=== PATIENT | male | born 1965 | race Caucasian/White ===

== ENCOUNTER → 2017-10-19 12:29 | Outpatient (CLI) | payer MEDICARE, SELFPAY ==
--- NOTE | 2017-10-19 12:55 | DI.RAD_ITS ---
SYMPTOMS/DIAGNOSIS: NECK PAIN, M54.2, RADICULITIS CERVICAL SPINE: Odontoid, AP, lateral and bilateral oblique views. No priors. The odontoid is intact. The lateral masses are well aligned. There is straightening of the cervical lordosis, which may be due to muscle spasm or patient positioning. Endplate osteophytes are seen at C5-C6. There appears to be mild narrowing of the right neural foramen at C3-4, 4-5 and 5-6. No acute fractures or subluxations are seen. There is mild anterolisthesis of C3 on C4 of approximately 2 mm. The prevertebral soft tissues are unremarkable. The bones are normally mineralized. IMPRESSION: Mild cervical spondylosis as described above.
== END ==
PROVIDERS: PCP Family Medicine; Visit Provider Family Medicine
DX: M54.2 Cervicalgia (principal); M54.12 Radiculopathy, cervical region; M47.22 Other spondylosis with radiculopathy, cervical region
CPT/HCPCS: 72050

== ENCOUNTER 2019-09-20 10:06 | Outpatient (REF) | payer MEDICARE, SELFPAY ==
[2019-09-20 20:35] LABS: HCT 46.8 % (40.0-50.0); HGB 15.1 g/dL (13.5-17.5); MCH 29.3 pg (27.0-33.0); MCHC 32.3 % (32.0-36.0); MCV 90.9 fL (80-95); MPV 10.5 fL (8.0-11.0); Platelet Count 418 10^3/uL (130-400); RBC 5.15 10^6/uL (4.36-5.78); RDW-SD 43.1 fL; WBC 11.97 10^3/uL (4.4-10.8)
[2019-09-20 20:49] LABS: Anion Gap 10.8 mmol/L (3-11); BUN 16 mg/dL (7-18); CO2 25.2 mmol/L (21.0-32.0); CREATININE 1.12 mg/dL (0.70-1.30); Calcium 9.2 mg/dL (8.5-10.1); Chloride 102 mmol/L (98-107); Glucose 110 mg/dL (74-106); Potassium 4.7 mmol/L (3.5-5.1); Sodium 138 mmol/L (136-145)
== END 2019-09-20 10:26 ==
LOC: NCHCN 10:06
PROVIDERS: PCP Family Medicine; Visit Provider Family Medicine
DX: I10 Essential (primary) hypertension (principal); R73.09 Other abnormal glucose; Z83.2 Family history of diseases of the blood and blood-forming organs and certain disorders involving the immune mechanism
CPT/HCPCS: 80048; 85027; 83036

== ENCOUNTER 2020-02-24 11:06 | Outpatient (REF) | payer MEDICARE, SELFPAY ==
--- NOTE | 2020-02-24 14:30 | SKI_PTH ---
PATIENT: Mihai Murphy LOC: [facility] U#:[id number] AGE/SX: 54/M ROOM: RE02/24/[address]: Wilson Murcia V : 1965 BED: DIS: 02/24/2020 SPEC #: [id number] RECD: 02/25/20 12:57 STATUS: GABRIELE REQ #: [id number] AMANDA: 02/24/20 14:[address]: Wilson Murcia V DEPT: Surgical Specimen RECD BY: Mary Falcon ENTERED: 02/25/20 12:58 SP TYPE: MARCIO THOMAS DR: Bryce Ratliff Tissues: 1 - SKIN CYST/TAG/DEBRIDEMENT Procedures: SKIN LEVEL 4 Comments: [id number]
== END 2020-02-24 11:26 ==
LOC: NCHCN 11:06
PROVIDERS: PCP Family Medicine; Visit Provider Physician Assistant Medical
DX: L82.1 Other seborrheic keratosis (principal); L72.8 Other follicular cysts of the skin and subcutaneous tissue
CPT/HCPCS: 88304; 88305

== ENCOUNTER 2021-08-30 12:03 | Outpatient (REF) | payer MEDICARE, SELFPAY ==
[2021-08-30 21:40] LABS: ALT 38 U/L (16-63); AST 18 U/L (15-37); Alkaline Phosphatase 92 U/L (46-116); Anion Gap 10.6 mmol/L (3-11); BUN 12 mg/dL (7-18); Bilirubin, Total 0.2 mg/dL (0.2-1.0); CO2 24.4 mmol/L (21.0-32.0); CREATININE 1.1 mg/dL (0.70-1.30); Calcium 9.4 mg/dL (8.5-10.1); Calculated LDL 121 mg/dL (<100); Chloride 105 mmol/L (98-107); Cholesterol 179 mg/dL (<200); Glucose 86 mg/dL (74-106); HDL Cholesterol 42 mg/dL (40-60); Potassium 4.2 mmol/L (3.5-5.1); Sodium 140 mmol/L (136-145); Total Protein 7.4 g/dL (6.4-8.2); Triglyceride 83 mg/dL (<150)
== END 2021-08-30 12:04 | disposition home or self-care (01) ==
LOC: NCHCN 12:03
PROVIDERS: PCP Family Medicine; Visit Provider Family Medicine
DX: I10 Essential (primary) hypertension (principal); R73.03 Prediabetes; Z00.00 Encounter for general adult medical examination without abnormal findings; Z13.220 Encounter for screening for lipoid disorders
CPT/HCPCS: 80053; 80061; 83036

== ENCOUNTER 2022-05-06 09:00 | Emergency (ER) | payer MEDICARE, SELFPAY ==
[2022-05-06 09:03] VITALS: BP 160/81; PULSE 107; RESP 16; TEMP 36.6; O2SAT 96
--- NOTE | 2022-05-06 09:26 | W.ED.GENAD ---
Discharge Plan Disposition Patient Disposition: Home Discharge Details Clinical Impression: Gout Primary Care Provider: Bryce Ratliff ED Provider: Ramu Joyce Home Meds and New Rx's Prescriptions: New prednisone 10 mg tablet 10 mg PO DIRECTED Qty: 30 0RF Rx Instructions: see taper instructions- please take 50mg for 2 days, 40 mg for 2 days, 30 mg for 2 days,20 mg for 2 days, 10 mg for 2 days. Continued methylphenidate HCl 20 MG tablet 36 mg PO DAILY quetiapine 100 mg tablet 100 mg PO DAILY prazosin 5 mg capsule 5 mg PO DAILY venlafaxine 75 mg capsule,extended release 24hr 75 mg PO DAILY gabapentin 300 mg capsule 300 mg PO DAILY venlafaxine 150 mg capsule,extended release 24hr 150 mg PO DAILY Discontinued metoprolol succinate 100 MG tablet extended release 24 hr 100 mg PO DAILY Patient Comments: 05/06/22: not taking mirtazapine 15 MG tablet 15 mg PO HS Patient Comments: 05/06/22: not taking lisinopril 10 MG tablet 10 mg PO DAILY Patient Comments: 05/06/22: not taking Discharge Instructions Instructions: Low Purine Diet (ED), Gout (ED) Additional Instructions: Please start your steroid tomorrow and take as directed. It is very important to follow-up with your primary care provider next week for further reassessment or return to the emergency department for any new or significant worsening of your symptoms. Stay well-hydrated and you may take acetaminophen/Tylenol as needed for further discomfort. Referrals: Bryce Ratliff [Primary Care Provider] - 1 week Medical Decision Making Patient presenting to the emergency department for chief complaint of bilateral great toe pain. Patient states this is been going on for the past 10 days. Patient denies any other injury or trauma, does state that rest improves discomfort, denies any known contributing factor to her discomfort. Patient has not taken any pain medication or attempted any treatments since pain started. Patient does state concerned that this is potentially his blood sugar being elevated. Patient does have history of hypertension, renal cell carcinoma with decreased kidney function, and anxiety. I have a high suspicion that this is gout given patient's renal history. There is no obvious trauma or injury. We will check patient's blood glucose but otherwise I do not feel that labs would change disposition and patient denies all other symptoms. Given this will place patient on steroids given renal history and have patient follow-up with primary care provider for reassessment next week. After discussion of diagnosis and plan of care patient has no further needs, questions, or concerns and states clear understanding to return to the emergency department for any worsening symptoms. This documentation was generated using [employer]kidsation system, please disregard any oddities of phrase or misspellings. HPI General Mode of arrival: ambulatory. Date/Time Provider Initiated Documentation: 05/06/22 09:01. Limitations to Documentation: no limitations. Information obtained by: patient and RN notes reviewed. History of Present Illness 56 year old M presents to the emergency department with the chief complaint of Bilateral great toe pain, described as moderate, with intensity rated at 7. Quality is described as aching and sharp, and is localized to the lower extremity. Patient reports no radiation. Patient started experiencing this day(s) (10) and it has been constant. Rest improves symptom(s), Movement worsens symptoms . Patient notes no other symptoms.. Patient did receive the following treatments prior to arrival, none Related Data Home Medications Medication Instructions Recorded Confirmed methylphenidate HCl 20 mg tablet 36 mg PO DAILY 06/05/17 05/06/22 gabapentin 300 mg capsule 300 mg PO DAILY 05/06/22 05/06/22 prazosin 5 mg capsule 5 mg PO DAILY 05/06/22 05/06/22 prednisone 10 mg tablet 10 mg PO DIRECTED #30 tabs 05/06/22 quetiapine 100 mg tablet 100 mg PO DAILY 05/06/22 05/06/22 venlafaxine 150 mg 150 mg PO DAILY 05/06/22 05/06/22 capsule,extended release 24 hr venlafaxine 75 mg capsule,extended 75 mg PO DAILY 05/06/22 05/06/22 release 24 hr Previous Rx's Medication Instructions Recorded prednisone 10 mg tablet 10 mg PO DIRECTED #30 tabs 05/06/22 Allergies Allergy/AdvReac Type Severity Reaction Status Date / Time No Known Allergies Allergy Unverified 05/06/22 09:09 General Stated Complaint: Orthopedic DARLENE: 4 Review of Systems Constitutional Constitutional: Denies chills and Denies fever(s) Cardiovascular Cardiovascular: Denies leg edema Musculoskeletal Musculoskeletal: Reports as per HPI, Denies numbness and Denies tingling Integumentary/Breasts Skin/Breast: Denies erythema and Denies rash Neurologic Neurologic: Denies numbness and Denies tingling PFSH All Active Problems (Updated 05/06/22 @ 09:33 by Ramu Joyce NP) Gout (Chronic) Medical History ADD (attention deficit disorder) Anxiety and depression Attention deficit hyperactivity disorder Blastomycosis Family history of sickle cell anemia HTN (hypertension) Nicotine addiction Renal cell cancer Restless leg syndrome Rib pain on right side Tachycardia Surgical History Colonoscopy - MAC (04/18/17) right rib resection Social History Smoking/Tobacco Use Status: Current every day Smoking risk assessment performed?: Yes Drug use: Daily Substance use type: marijuana Do you feel safe at home: Yes Do you feel safe in your relationship?: Yes Exam Const General: cooperative, no acute distress and not ill appearing Orientation: alert, awake and oriented x3 Resp Effort & Inspection: normal respiratory effort, able to speak in complete sentences and no respiratory distress Auscultation: clear to auscultation bilaterally Cardio Rate: regular rate Rhythm: regular rhythm Heart Sounds: S1 normal and S2 normal Skin General skin exam: no rashes or lesions noted Neuro General: patient alert, patient awake, patient oriented x3, moves all extremities and no focal motor deficits Sensory Exam: no sensory deficits noted Extrem General: normal exam except as noted Right lower extremity: ankle Details: normal to inspection and normal ROM; no tenderness and no swelling and foot Details: normal capillary refill, tenderness Location: of the great toe Location: at the MTP joint, toes with normal ROM, no edema, vascular exam Details: dorsalis pedis pulse present, posterior tibial pulse present and normal capillary refill and motor-sensory exam Details: two point discrimination normal and light-touch normal; no ecchymosis and no crepitus Left lower extremity: ankle Details: normal to inspection and normal ROM; no tenderness and no swelling and foot Details: normal capillary refill, tenderness Location: of the great toe Location: at the MTP joint, toes with normal ROM, no edema, vascular exam Details: dorsalis pedis pulse present, posterior tibial pulse present and normal capillary refill and motor-sensory exam Details: two point discrimination normal and light-touch normal; no crepitus Course Vital Signs Vital signs: Vital Signs Temperature 36.6 C 05/06/22 09:03 Pulse 107 H 05/06/22 09:03 Respiratory Rate 16 05/06/22 09:03 Blood Pressure 160/81 H 05/06/22 09:03 Pulse Oximetry 96 05/06/22 09:03 Temperature 36.6 C 05/06/22 09:03 Temperature Source Oral 05/06/22 09:03 Pulse 107 H 05/06/22 09:03 Respiratory Rate 16 05/06/22 09:03 Respiratory Effort Normal 05/06/22 09:12 Blood Pressure 160/81 H 05/06/22 09:03 Blood Pressure Position Sitting 05/06/22 09:03 Pulse Oximetry 96 05/06/22 09:03 Oxygen Delivery Method Room Air 05/06/22 09:03 Oxygen Flow Rate 0 05/06/22 09:03 Pain Level 7 05/06/22 09:03 Comment 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
--- NOTE | 2022-05-06 09:34 | NUR.NOTE ---
Nursing Note: PT needs PCP follow up next week for gout. Yolanda, ED
[2022-05-06] MEDS: predniSONE 20 MG TAB 60 MG PO (09:46)
[2022-05-06] MEDS: Acetaminophen 325 MG TAB 650 MG PO (09:46)
== END 2022-05-06 09:53 | disposition home or self-care (01) ==
PROVIDERS: Emergency Provider Nurse Practitioner Family; PCP Family Medicine
DX: M10.9 Gout, unspecified (principal); Z86.79 Personal history of other diseases of the circulatory system; Z85.528 Personal history of other malignant neoplasm of kidney; Z79.899 Other long term (current) drug therapy
CPT/HCPCS: 36416; 82962; 99283; J7512

== ENCOUNTER 2022-07-01 21:44 | Emergency (ER) | payer MEDICARE, SELFPAY ==
[2022-07-01] VITALS (21 sets, daily range): BP systolic 111–145; BP diastolic 63–89; PULSE 64–77; RESP 10–36; TEMP 36.5; O2SAT 95–97
--- NOTE | 2022-07-01 22:35 | W.ED.GENAD ---
Discharge Plan Discharge Details Chief Complaint: [id number] Clinical Impression: Syncope and collapse, Hypomagnesemia, Hypokalemia Primary Care Provider: Bryce Ratliff ED Provider: Carlos Ashford Home Meds and New Rx's Prescriptions: Continued methylphenidate HCl 20 MG tablet 36 mg PO DAILY quetiapine 100 mg tablet 100 mg PO DAILY prazosin 5 mg capsule 5 mg PO DAILY venlafaxine 75 mg capsule,extended release 24hr 75 mg PO DAILY gabapentin 300 mg capsule 300 mg PO DAILY venlafaxine 150 mg capsule,extended release 24hr 150 mg PO DAILY prednisone 10 mg tablet 10 mg PO DIRECTED Qty: 30 0RF Rx Instructions: see taper instructions- please take 50mg for 2 days, 40 mg for 2 days, 30 mg for 2 days,20 mg for 2 days, 10 mg for 2 days. Discharge Instructions Instructions: Syncope (ED) Additional Instructions: You were seen in the emergency department for your episode of fainting. Your CAT scan showed no sign of any bleeding or any masses in your head. Your EKG and blood work showed no sign of any damage to your heart. Your blood work showed your kidneys are working well. As we discussed you may benefit from a Holter monitor to assess your heart rhythm over time and possibly echocardiogram. Please follow-up in the next week with your primary care provider. If you pass out again develop any convulsions or develop chest pain please return to the emergency department. Medical Decision Making This is an overall very well-appearing normothermic and not tachycardic 56-year-old male with syncopal episodes and question of convulsions concerning for cardiac etiology given patient's age and history of tobacco use. He also has a history of renal cancer which certainly raises the possibility of a metastatic lesion in his brain leading to an epileptogenic focus with subsequent seizure. He has not had any black nor bloody stools to suggest acute GI bleed and is neither pale appearing nor tachycardic to suggest acute blood loss anemia. He has not been vomiting to suggest increased risk for acute electrolyte abnormalities. No shortness of breath to suggest PE. He is not having any chest pain however given syncope will obtain troponin to assess for possibility of myocardial injury. He also tells me that he has not had anything to eat or drink since breakfast and as result he may have syncopized secondary to his relative fasting state in conjunction with his nocturnal gabapentin and quetiapine which she reportedly took several hours early. If his CT head does not show any obvious metastatic abnormalities and if he does not have any observed convulsions in the ED then will anticipate discharging the patient off of antiepileptic drugs pending reassessment by his primary care with possibility of MRI to increase sensitivity for any intracranial tumors. Another possibility would be to obtain Holter monitor to increase the sensitivity for arrhythmias. Finally another consideration may be an echocardiogram to look for any structural causes which could lead to syncope so I did not hear any holosystolic murmurs which could suggest aortic stenosis. Finally another consideration is blastomycosis which could cause possibility of brain abscess. Given that he is normothermic and denies any fevers at home and has no nuchal rigidity my suspicion is exceedingly low for meningitis so I do not feel he requires a lumbar puncture. I given the patient 2 cans of yusef eugenia and crackers and an attempt to prevent further episodes of syncope. In the setting of syncope I considered: High risk features: 1. Age of the patient (elderly a greatest risk) 2. Syncope during exertion 3. Family history of sudden [place] syncope rule: 1. History of CHF 2. Hematocrit < 30 3. EKG abnormalities 4. Present shortness of breath 5. Systolic blood pressure less than 90 Cardiac arrhythmia/EKG or abnormalities considered: 1. ACS: No ST changes 2. Tachy-demetris: No blocks 3. WPW: No delta wave 4. Brugada: No RSR'; R-bundle appearance 5. HCM: No LVH; needle Qs/ T-wave inversions 6. Short/ Long QT: 300 < QTc < 500; no family hx 7. Arrhythmogenic Right Ventricular Dysplasia: No epsilon wave, no inverted Ts in anterior precordium 8. No signs of ASD based on no [place] sign in inferior leads. 11:45 PM Negative troponin. Very mild hypomagnesemia for which patient will receive oral repletion. Reassuring comprehensive metabolic panel with very mild hypokalemia for which patient will receive oral repletion. Mild hyperglycemia but no anion gap to suggest DKA. No ELYSE. CBC lacks anemia thrombocytopenia and leukocytosis. Patient is not on any diuretics I suspect that his electrolytes will correct themselves but nonetheless we will add oral potassium and magnesium. We will have health ammunition storekeeper Francia arrange for PCP follow-up next week. I have written patient for continued discharge instructions pending his repeat troponin and the read on his CT head. We will sign the patient out to Dr. Torrez. Chronic conditions affecting the care of the patient: Daily tobacco & blastomycosis History obtained from an outside historian: Patient's External record review: [facility] [place] Diagnostic interpretations performed by me: [Per my independent interpretation chest x-ray shows:] N/A Per my independent interpretation EKG shows: Normal sinus rhythm with no ischemic injury pattern. No blocks signs of Brugada. Intervals within normal limits. Isolated T wave inversion in aVL. No prior for comparison. Medications: N/A Social determinants of health affecting disposition: N/A Management discussed with: Dr. Torrez Treatment/interventions considered: Hospitalization but deferred Response to therapies provided: N/A HPI General Date/Time Provider Initiated Documentation: 07/01/22 22:27. HPI Narrative: This is a 56-year-old male with a history of blastomycosis and renal cell carcinoma arriving via EMS following a syncopal episode. Patient reportedly has not had anything to eat or drink since breakfast. He was reportedly standing on some concrete steps when he lost consciousness. This episode lasted for approximately 30 seconds and his felt that he was shaking. This occurred after he took his nocturnal medications including quetiapine and gabapentin. Patient's reported that he felt warm afterwards. She tried to keep him sitting up and did not lower his head to the ground. He did not strike his head. He did not lose control of his bowels nor bladder. He is a daily tobacco user but denies routine ethanol. He denies any preceding chest pain and any preceding headaches. He was initially confused and reportedly pale appearing. He reportedly had a normal fingerstick blood glucose with prehospital providers. He has a history of restless leg syndrome. Related Data Home Medications Medication Instructions Recorded Confirmed methylphenidate HCl 20 mg tablet 36 mg PO DAILY 06/05/17 05/06/22 gabapentin 300 mg capsule 300 mg PO DAILY 05/06/22 05/06/22 prazosin 5 mg capsule 5 mg PO DAILY 05/06/22 05/06/22 prednisone 10 mg tablet 10 mg PO DIRECTED #30 tabs 05/06/22 quetiapine 100 mg tablet 100 mg PO DAILY 05/06/22 05/06/22 venlafaxine 150 mg 150 mg PO DAILY 05/06/22 05/06/22 capsule,extended release 24 hr venlafaxine 75 mg capsule,extended 75 mg PO DAILY 05/06/22 05/06/22 release 24 hr Previous Rx's Medication Instructions Recorded prednisone 10 mg tablet 10 mg PO DIRECTED #30 tabs 05/06/22 Allergies Allergy/AdvReac Type Severity Reaction Status Date / Time No Known Allergies Allergy Unverified 05/06/22 09:09 General Stated Complaint: [id number] DARLENE: 3 PFSH All Active Problems (Updated 07/01/22 @ 23:50 by Carlos Ashford MD) Syncope and collapse (Acute) Hypomagnesemia (Acute) Hypokalemia (Acute) Medical History ADD (attention deficit disorder) Anxiety and depression Attention deficit hyperactivity disorder Blastomycosis Family history of sickle cell anemia HTN (hypertension) Nicotine addiction Renal cell cancer Restless leg syndrome Rib pain on right side Tachycardia Surgical History Colonoscopy - MAC (04/18/17) right rib resection Social History Smoking/Tobacco Use Status: Current every day Smoking risk assessment performed?: Yes Drug use: Daily Substance use type: marijuana Do you feel safe at home: Yes Do you feel safe in your relationship?: Yes Exam Narrative Exam Narrative: General: Well-appearing in no acute distress speaking in complete sentences. Head: Normocephalic, atraumatic. Eye: Pupils equal, round reactive to light. Extraocular eye movements intact. No conjunctival injection. No scleral icterus. Ear, nose, mouth, throat: Grossly normal inspection. Normal voice, handling secretions normally. Neck: Trachea midline. Cardiovascular: Well-perfused distal extremities. Regular rate and rhythm. No murmurs. Clear lungs bilaterally. Respiratory: Nonlabored respiration. Gastrointestinal: Nondistended abdomen. Musculoskeletal: No edema. Moving all 4 extremities spontaneously. Skin: Normal for age and race, grossly normal temperature and turgor. No acute rash. Neurologic: Alert and appropriate, no apparent acute deficits. Psychiatric: Mood and manner are appropriate. Grooming and personal hygiene are appropriate. Course Vital Signs Vital signs: Vital Signs Temperature 36.5 C 07/01/22 21:48 Pulse 67 07/01/22 21:48 Respiratory Rate 14 07/01/22 21:48 Blood Pressure 145/70 H 07/01/22 21:48 Pulse Oximetry 95 07/01/22 21:48 Temperature 36.5 C 07/01/22 21:48 Temperature Source Temporal Artery Scan 07/01/22 21:48 Pulse 67 07/01/22 21:48 Respiratory Rate 14 07/01/22 21:48 Blood Pressure 145/70 H 07/01/22 21:48 Blood Pressure Position Sitting 07/01/22 21:48 Pulse Oximetry 95 07/01/22 21:48 Oxygen Delivery Method Room Air 07/01/22 21:48 Oxygen Flow Rate 0 07/01/22 21:48 Pain Level 0 07/01/22 21:48
--- NOTE | 2022-07-01 22:45 | DI.CT_ITS ---
Exam(s) CT HEAD WO EXAM: CT HEAD WO CLINICAL HISTORY: Loss of consciousness renal cancer?Met. TECHNIQUE: Imaging Protocol: Axial computed tomography images with coronal and sagittal reformatted images were created and reviewed COMPARISON: No exams were available for comparison FINDINGS: There are no skull fractures. No lytic nor blastic skull lesions evident. Minimal mucosal thickening noted in the maxillary sinuses, not associated with fluid levels. Other paranasal sinuses are clear . Frontal sinuses are not developed. There is no evidence of intracranial hemorrhage, mass effect, or shift of midline structures. There are no extra-axial fluid collections. The ventricles are not enlarged or shifted and there is no blo od within the ventricular system nor within the basal cisterns. IMPRESSION: No acute intracranial findings on this noninfused CT scan of the brain. Given the history here recommend follow-up contrast infused MRI of the brain. RADIATION DOSE DELIVERED: 883.57mGy.cm Total DLP DATA REPOSITORY: All CT scans at this facility are submitted to the National Radiology Data Registry (NRDR) Dose Index Registry (DIR) with the [employer] (ACR). RADIATION OPTIMIZATION: All CT scans at this facility use at least one of these dose optimization te chniques: automated exposure control; mA and/or kV adjustment per patient size (includes targeted exa ms where dose is matched to clinical indication); or iterative reconstruction.
[2022-07-01 22:50] LABS: Abs Immature Grans 0.04 10^3/uL (0.0-0.06); Absolute Basophil Count 0.04 10^3/uL (0.0-0.2); Absolute Eosinophil Count 0.34 10^3/uL (0.0-0.7); Absolute Lymphocyte Count 3.48 10^3/uL (1.2-3.4); Absolute Monocyte Count 0.92 10^3/uL (0.1-0.8); Absolute Neutrophil Count 5.79 10^3/uL (1.2-6.7); Basophils % 0.4; Eosinophils % 3.2; HCT 46.4 % (40.0-50.0); HGB 15.8 g/dL (13.5-17.5); Immature Grans % 0.4; Lymphocytes % 32.8; MCH 29.5 pg (27.0-33.0); MCHC 34.1 % (32.0-36.0); MCV 87 fL (80-95); MPV 9.8 fL (8.0-11.0); Monocytes % 8.7; Neutrophils % 54.5; Platelet Count 296 10^3/uL (130-400); RBC 5.36 10^6/uL (4.36-5.78); RDW 13.2 % (11.8-14.1); RDW-SD 41.7 fL; WBC 10.61 10^3/uL (4.4-10.8)
--- NOTE | 2022-07-01 23:00 | RT.EKG_ITS ---
APPROVED REPORT Exam: Resting ECG Reason for Exam: Syncope Patient Location: E HR:65 bpm ECG Measurements Heart Rate 65 AXIS NE 165 P 54 QRSd 92 QRS 83 QT 426 T 73 QTc 442 Conclusion Sinus rhythm...normal P axis, V-rate 60- 99 Narrow complex normal sinus rhythm at a rate of 65. Normal axis. Intervals within normal limits. T wave inversion in aVL. No acute injury pattern. No prior for comparison.
[2022-07-01 23:04] LABS: ALT 38 U/L (16-63); AST 19 U/L (15-37); Albumin 4.2 g/dL (3.4-5.0); Alkaline Phosphatase 98 U/L (46-116); Anion Gap 10.2 mmol/L (3-11); BUN 11 mg/dL (7-18); Bilirubin, Total 0.5 mg/dL (0.2-1.0); CO2 25.8 mmol/L (21.0-32.0); CREATININE 1.1 mg/dL (0.70-1.30); Chloride 103 mmol/L (98-107); Estimated GFR 79.28 (mL/min/1.73m2); Glucose 140 mg/dL (74-106); Magnesium 1.7 mg/dL (1.8-2.4); Potassium 3.3 mmol/L (3.5-5.1); Sodium 139 mmol/L (136-145); Total Protein 7.7 g/dL (6.4-8.2); Troponin I < 50 ng/L (<or=60)
[2022-07-02] VITALS (10 sets, daily range): BP systolic 143; BP diastolic 81; PULSE 68–78; RESP 8–21; O2SAT 94–97
--- NOTE | 2022-07-02 00:04 | NUR.NOTE ---
Pt referral for Primary per Dr. Ashford within 1 week for Syncope f/u :
--- NOTE | 2022-07-02 00:18 | DI.VRAD_ITS ---
PROCEDURE INFORMATION: Exam: CT Head Without Contrast Exam date and time: 07/01/2022 11:23 PM Age: 56 years old Clinical indication: Other: Loss of consciousness renal cancer? Met TECHNIQUE: Imaging protocol: Computed tomography of the head without contrast. Radiation optimization: All CT scans at this facility use at least one of these dose optimization techniques: automated exposure control; mA and/or kV adjustment per patient size (includes targeted exams where dose is matched to clinical indication); or iterative reconstruction. COMPARISON: CR XR cervical spine comp 4-5V 10/19/2017 12:49 PM FINDINGS: Brain: There is no evidence of intracranial hemorrhage. No mass effect or midline shift. There is no brain edema. Unremarkable white matter. Cerebral ventricles: The ventricles and sulci are appropriate for the patient's age. Paranasal sinuses: There are no air-fluid levels. Mastoid air cells: The visualized mastoid air cells are well aerated. Bones/joints: No acute fracture. Soft tissues: Unremarkable. IMPRESSION: 1. No acute findings. 2. No intracranial mass is identified. Please note that small metastatic lesions may be missed on the noncont CT scan of the brain. CT with intravenous contrast has better sensitivity. MRI with contrast is the preferred modality for detection metastatic disease to the brain. Dictated and Authenticated by: Luis Madrigal MD. Ordering:PAUL Gonzalez MD
[2022-07-02] MEDS: Potassium Bicarbonate/Cit AC 25 MEQ TABLET.EFF 50 MEQ PO (00:21)
[2022-07-02] MEDS: Magnesium Oxide 400 MG TAB PO (00:21)
--- NOTE | 2022-07-02 01:25 | ED.PROG_ITS ---
Date of service: 07/02/22 Time of Service: 01:26 Medical Decision Making Patient was signed out to me pending CT scan. CT scan ordered for acute process. Discussed the plan with the patient and family, and at this time they have no other concerns. They are ready to go on her asking for discharge. Symptoms at this time showed no evidence of neurologic defect or deficit. Patient stable for discharge. Recommend continued hydration at home. I have extensively reviewed the treatment plan and discharge instructions with the patient and their family. I have addressed all patient concerns at this time. The patient and family was made aware of what symptoms to monitor for that would warrant a return to the emergency department. Discussed the plan with the patient and family, they demonstrate verbal understanding and agreement with our assessment and plan at this time. The documentation in this chart was dictated using [employer] dictation software. Please excuse any dictation errors. FINDINGS: Brain: There is no evidence of intracranial hemorrhage. No mass effect or midline shift. There is no brain edema. Unremarkable white matter. Cerebral ventricles: The ventricles and sulci are appropriate for the patient's age. Paranasal sinuses: There are no air-fluid levels. Mastoid air cells: The visualized mastoid air cells are well aerated. Bones/joints: No acute fracture. Soft tissues: Unremarkable. IMPRESSION: 1. No acute findings. 2. No intracranial mass is identified. Please note that small metastatic lesions may be missed on the noncont CT scan of the brain. CT with intravenous contrast has better sensitivity. MRI with contrast is the preferred modality for detection metastatic disease to the brain. Thank you for allowing us to participate in the care of your patient. Dictated and Authenticated by: Luis Madrigal MD 07/02/2022 12:18 AM Eastern Time ([place] & [place] Sign Out Sign Out Data: Sign Out Comment: Please follow-up repeat troponin and read on CT head. Patient has been written for contingent discharge instructions and updated on this plan of care. Last updated by Carlos Ashford MD at 07/02/22 00:03 Discharge Plan Discharge Details Chief Complaint: [id number] Clinical Impression: Syncope and collapse, Hypomagnesemia, Hypokalemia Primary Care Provider: Bryce Ratliff ED Provider: Edilson Torrez Home Meds and New Rx's Prescriptions: Continued methylphenidate HCl 20 MG tablet 36 mg PO DAILY quetiapine 100 mg tablet 100 mg PO DAILY prazosin 5 mg capsule 5 mg PO DAILY venlafaxine 75 mg capsule,extended release 24hr 75 mg PO DAILY gabapentin 300 mg capsule 300 mg PO DAILY venlafaxine 150 mg capsule,extended release 24hr 150 mg PO DAILY prednisone 10 mg tablet 10 mg PO DIRECTED Qty: 30 0RF Rx Instructions: see taper instructions- please take 50mg for 2 days, 40 mg for 2 days, 30 mg for 2 days,20 mg for 2 days, 10 mg for 2 days. Discharge Instructions Instructions: Syncope (ED) Additional Instructions: You were seen in the emergency department for your episode of fainting. Your CAT scan showed no sign of any bleeding or any masses in your head. Your EKG and blood work showed no sign of any damage to your heart. Your blood work showed your kidneys are working well. As we discussed you may benefit from a Holter monitor to assess your heart rhythm over time and possibly echocardiogram. Please follow-up in the next week with your primary care provider. If you pass out again develop any convulsions or develop chest pain please return to the emergency department.
[2022-07-02 01:38] LABS: Troponin I < 50 ng/L (<or=60)
== END 2022-07-02 01:32 | disposition home or self-care (01) ==
PROVIDERS: Emergency Medicine; Emergency Provider Student in an Organized Health Care Education/Training Program; PCP Family Medicine
DX: R55 Syncope and collapse (principal); E87.6 Hypokalemia; E83.42 Hypomagnesemia
CPT/HCPCS: 80053; 93005; 99284; 70450; 83735; 84484; 85025; 93010

== ENCOUNTER 2022-07-26 21:40 | Emergency (ER) | payer MEDICARE, SELFPAY ==
[2022-07-26 21:45] VITALS: BP 144/84; PULSE 104; RESP 22; TEMP 36.9; O2SAT 98
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
== END 2022-07-26 22:21 | disposition home or self-care (01) ==
PROVIDERS: Emergency Provider Emergency Medicine; PCP Family Medicine
DX: I10 Essential (primary) hypertension; S50.312A Abrasion of left elbow, initial encounter; S00.412A Abrasion of left ear, initial encounter; Y00.XXXA Assault by blunt object, initial encounter; S09.90XA Unspecified injury of head, initial encounter
CPT/HCPCS: 99282; 99283

== ENCOUNTER 2022-09-09 13:37 | Outpatient (CLI) | payer MEDICARE, SELFPAY ==
--- NOTE | 2022-09-09 13:45 | RT.EKG_ITS ---
APPROVED REPORT Exam: Resting ECG Reason for Exam: NPW baseline needed Patient Location: O HR:72 bpm ECG Measurements Heart Rate 72 AXIS IL 148 P 55 QRSd 92 QRS 76 QT 389 T 54 QTc 426 Conclusion Sinus rhythm...normal P axis, V-rate 50- 99 Normal Electrocardiogram
== END 2022-09-09 13:38 | disposition home or self-care (01) ==
LOC: DI.CARD 14:00
PROVIDERS: PCP Family Medicine; Referring Provider Family Medicine; Visit Provider Internal Medicine Cardiovascular Disease
DX: F43.10 Post-traumatic stress disorder, unspecified (principal)
CPT/HCPCS: 93010

== ENCOUNTER 2022-09-09 14:34 | Emergency (ER) | payer MEDICARE, SELFPAY ==
--- NOTE | 2022-09-09 14:30 | RT.EKG_ITS ---
APPROVED REPORT Exam: Resting ECG Reason for Exam: per cardiology Patient Location: E HR:69 bpm ECG Measurements Heart Rate 69 AXIS MI 161 P 47 QRSd 91 QRS 69 QT 397 T 44 QTc 427 Conclusion Sinus rhythm...normal P axis, V-rate 60- 99 Narrow complex normal sinus rhythm at a rate of 69. Normal axis. Intervals within normal limits. T wave flattening in aVL appears slightly improved compared to prior. Prior dated earlier today. No ST segment elevation. No acute injury pattern.
[2022-09-09 14:39] VITALS: BP 146/85; PULSE 66; RESP 18; TEMP 36.9; O2SAT 99
--- NOTE | 2022-09-09 14:39 | ED.GENADUL_ITS ---
Discharge Plan Discharge Details Chief Complaint: SOB Primary Care Provider: Ruthie Hernandez ED Provider: Carlos Ashford Home Meds and New Rx's Prescriptions: No Action trazodone 50 mg tablet 50 mg PO QHS Rx Instructions: Take 1/2 tablet at bedtime for first 7 days. Then 1 tablet every night thereafter. methylphenidate HCl 20 MG tablet 36 mg PO DAILY gabapentin 400 mg capsule 400 mg PO TID quetiapine [Seroquel] 100 mg tablet 50 mg PO QHS quetiapine 100 mg tablet 100 mg PO DAILY prazosin 5 mg capsule 5 mg PO DAILY venlafaxine 75 mg capsule,extended release 24hr 75 mg PO DAILY venlafaxine 150 mg capsule,extended release 24hr 150 mg PO DAILY HPI General Date/Time Provider Initiated Documentation: 09/09/22 14:39 . Related Data Home Medications Medication Instructions Recorded Confirmed methylphenidate HCl 20 mg tablet 36 mg PO DAILY 06/05/17 09/09/22 prazosin 5 mg capsule 5 mg PO DAILY 05/06/22 09/09/22 quetiapine 100 mg tablet 100 mg PO DAILY 05/06/22 07/26/22 venlafaxine 150 mg 150 mg PO DAILY 05/06/22 09/09/22 capsule,extended release 24 hr venlafaxine 75 mg capsule,extended 75 mg PO DAILY 05/06/22 09/09/22 release 24 hr gabapentin 400 mg capsule 400 mg PO TID 09/07/22 09/09/22 quetiapine 100 mg tablet (Seroquel) 50 mg PO QHS 09/09/22 09/09/22 trazodone 50 mg tablet 50 mg PO QHS 09/09/22 09/09/22 Allergies Allergy/AdvReac Type Severity Reaction Status Date / Time No Known Allergies Allergy Verified 09/09/22 14:03 General DARLENE: 4 PFSH All Active Problems (Updated 09/07/22 @ 15:44 by Caesar Hair RN) PTSD (post-traumatic stress disorder) (Acute) Prediabetes (Acute) Tobacco use disorder (Acute) Tremor (Acute) Motor tic disorder (Acute) Syncope and collapse (Acute) Medical History (Updated 09/07/22 @ 15:44 by Caesar Hair RN) ADD (attention deficit disorder) Anxiety and depression Attention deficit hyperactivity disorder Blastomycosis Family history of sickle cell anemia HTN (hypertension) Nicotine addiction Renal carcinoma Renal cell cancer Restless leg syndrome Rib pain on right side Tachycardia Tubular adenoma of colon (04/18/17) Surgical History Colonoscopy - MAC (04/18/17) right rib resection Social History Smoking/Tobacco Use Status: Current every day Smoking risk assessment performed?: Yes Alcohol Intake: never Drug use: Daily Substance use type: marijuana Do you feel safe at home: Yes Do you feel safe in your relationship?: Yes
--- NOTE | 2022-09-09 15:00 | DI.RAD_ITS ---
Exam(s) XR CHEST 2V PA LATERAL EXAM: XR CHEST 2V PA LATERAL CLINICAL HISTORY: cough, apices crackles, r/o pneumonia TECHNIQUE: 2D digital imaging was performed. COMPARISON: CT ABD PELVIS WITH CONTRAST from 10/09/2015 CR CHEST 2 VIEWS PA,LAT from 02/16/2016 FINDINGS: HEART: Normal size. Aorta: Not dilated. PULMONARY VASCULATURE: Normal. LUNGS: Linear density seen above the left diaphragm, similar to prior exam. The lungs are otherwise clear. No evidence of infiltrate. PLEURAL SPACE: No pleural effusion or pneumothorax. BONE:Unremarkable for age. IMPRESSION: No acute abnormality. DATA REPOSITORY: RADIATION DOSE DELIVERED:
--- NOTE | 2022-09-09 15:08 | W.EDPROG ---
Date of service: 09/09/22 Time of Service: 15:08 Medical Decision Making I had originally signed up to evaluate this patient. I called cardiology as patient was reportedly at cardiac rehab earlier today. Patient reportedly had had a cough and subjective fever. Patient referred himself to the ED. Dr. Abdalla from cardiology reported that the patient had had clear lungs. I did not see the patient nor evaluate him in the emergency department. Discharge Plan Discharge Details Chief Complaint: SOB Primary Care Provider: Ruthie Hernandez ED Provider: Provider,Temporary Home Meds and New Rx's Prescriptions: No Action trazodone 50 mg tablet 50 mg PO QHS Rx Instructions: Take 1/2 tablet at bedtime for first 7 days. Then 1 tablet every night thereafter. methylphenidate HCl 20 MG tablet 36 mg PO DAILY gabapentin 400 mg capsule 400 mg PO TID quetiapine [Seroquel] 100 mg tablet 50 mg PO QHS quetiapine 100 mg tablet 100 mg PO DAILY prazosin 5 mg capsule 5 mg PO DAILY venlafaxine 75 mg capsule,extended release 24hr 75 mg PO DAILY venlafaxine 150 mg capsule,extended release 24hr 150 mg PO DAILY
--- NOTE | 2022-09-09 15:14 | W.ED.GENAD ---
Discharge Plan Disposition Patient Disposition: Home Condition: Good Discharge Details Clinical Impression: Bronchitis Primary Care Provider: Ruthie Hernandez ED Provider: Edilson Torrez Home Meds and New Rx's Prescriptions: New doxycycline hyclate 100 mg tablet 100 mg PO BID Qty: 20 0RF No Action trazodone 50 mg tablet 50 mg PO QHS Rx Instructions: Take 1/2 tablet at bedtime for first 7 days. Then 1 tablet every night thereafter. methylphenidate HCl 20 MG tablet 36 mg PO DAILY gabapentin 400 mg capsule 400 mg PO TID quetiapine [Seroquel] 100 mg tablet 50 mg PO QHS quetiapine 100 mg tablet 100 mg PO DAILY prazosin 5 mg capsule 5 mg PO DAILY venlafaxine 75 mg capsule,extended release 24hr 75 mg PO DAILY venlafaxine 150 mg capsule,extended release 24hr 150 mg PO DAILY Discharge Instructions Instructions: Acute Bronchitis (ED) Additional Instructions: At this time your chest x-ray shows no evidence of pneumonia. I suspect you have early mild bronchitis. Please take the inhaler, 2 puffs every 6-8 hours to help maintain good aeration while you are coughing. You can take emst-iio-xeaksxs loratadine to help diminish any congestion or sputum production. If you still have persistent or worsening symptoms after 48 hours, please take the doxycycline as directed. If you notice any worsening of your symptoms, or any new symptoms such as vomiting, diarrhea, fever, chills, shortness of breath, chest pain, numbness, weakness, or fainting , please return immediately to the emergency department for reevaluation. Please follow up with your primary care provider as soon as possible for reassessment and reevaluation. As always, it was a pleasure participating in your medical care today. Referrals: Ruthie Hernandez [Primary Care Provider] - Medical Decision Making 56-year-old male with a past medical history of renal cell carcinoma,, PTSD, blastomycosis, hypertension, presents today for evaluation of cough. Patient states that about 1 week ago he developed a cough, then had 3 to 4 days of subsequent fevers with a Tmax of 10 1-1 02. The fevers have since resolved and he has been fever free for the last 3 to 4 days, however the cough is persisted. He admits to productivity with his cough with green sputum. He denies any recent long trips, surgeries or procedures. He denies any chest pain, chest tightness, chest heaviness, or pain with breathing. He denies any pleuritic chest pain. He denies any headache. He denies any other sick contacts. He has had the COVID booster most recently about 4 months ago. He has not had coronavirus at all that he is contracted that he is aware of. No other complaints at this time. No other modifying factors. Physical exam demonstrates well-appearing male, vital signs are stable no respiratory distress. Lung sounds are clear except for questionable minimal crackle at the apices bilaterally. Differential is highest for bronchitis versus pneumonia. Pneumothorax unlikely. Symptoms appear inconsistent with PE. EKG is unremarkable. Symptoms inconsistent with ACS. We will get an x-ray, test for flu and COVID, monitor closely and reassess. 4:31 PM Chest x-ray negative for acute process. No evidence of pneumonia. Will give inhaler for home use to maintain good aeration. No indication to start antibiotics right now. We will give a prescription for doxycycline for home as the patient has persistent or worsening cough. Discussed red flags for which to return. I have extensively reviewed the treatment plan and discharge instructions with the patient. I have addressed all patient concerns at this time. The patient was made aware of what symptoms to monitor for that would warrant a return to the emergency department. Discussed the plan with the patient, they demonstrate verbal understanding and agreement with our assessment and plan at this time. The documentation in this chart was dictated using [employer] dictation software. Please excuse any dictation errors. FINDINGS: HEART: Normal size. Aorta: Not dilated. PULMONARY VASCULATURE: Normal. LUNGS: Linear density seen above the left diaphragm, similar to prior exam. The lungs are otherwise clear. No evidence of infiltrate. PLEURAL SPACE: No pleural effusion or pneumothorax. BONE:Unremarkable for age. IMPRESSION: No acute abnormality. HPI General Date/Time Provider Initiated Documentation: 09/09/22 14:39. HPI Narrative: 56-year-old male with a past medical history of renal cell carcinoma,, PTSD, blastomycosis, hypertension, presents today for evaluation of cough. Patient states that about 1 week ago he developed a cough, then had 3 to 4 days of subsequent fevers with a Tmax of 10 1-1 02. The fevers have since resolved and he has been fever free for the last 3 to 4 days, however the cough is persisted. He admits to productivity with his cough with green sputum. He denies any recent long trips, surgeries or procedures. He denies any chest pain, chest tightness, chest heaviness, or pain with breathing. He denies any pleuritic chest pain. He denies any headache. He denies any other sick contacts. He has had the COVID booster most recently about 4 months ago. He has not had coronavirus at all that he is contracted that he is aware of. No other complaints at this time. No other modifying factors. Related Data Home Medications Medication Instructions Recorded Confirmed methylphenidate HCl 20 mg tablet 36 mg PO DAILY 06/05/17 09/09/22 prazosin 5 mg capsule 5 mg PO DAILY 05/06/22 09/09/22 quetiapine 100 mg tablet 100 mg PO DAILY 05/06/22 07/26/22 venlafaxine 150 mg 150 mg PO DAILY 05/06/22 09/09/22 capsule,extended release 24 hr venlafaxine 75 mg capsule,extended 75 mg PO DAILY 05/06/22 09/09/22 release 24 hr gabapentin 400 mg capsule 400 mg PO TID 09/07/22 09/09/22 doxycycline hyclate 100 mg tablet 100 mg PO BID #20 tabs 09/09/22 quetiapine 100 mg tablet (Seroquel) 50 mg PO QHS 09/09/22 09/09/22 trazodone 50 mg tablet 50 mg PO QHS 09/09/22 09/09/22 Previous Rx's Medication Instructions Recorded doxycycline hyclate 100 mg tablet 100 mg PO BID #20 tabs 09/09/22 Allergies Allergy/AdvReac Type Severity Reaction Status Date / Time No Known Allergies Allergy Verified 09/09/22 14:03 General Stated Complaint: SOB DARLENE: 4 Review of Systems All systems reviewed & are unremarkable except as noted in HPI and below PFSH All Active Problems (Updated 09/09/22 @ 16:27 by Edilson Torrez DO) Bronchitis (Acute) PTSD (post-traumatic stress disorder) (Acute) Prediabetes (Acute) Tobacco use disorder (Acute) Tremor (Acute) Motor tic disorder (Acute) Syncope and collapse (Acute) Medical History ADD (attention deficit disorder) Anxiety and depression Attention deficit hyperactivity disorder Blastomycosis Family history of sickle cell anemia HTN (hypertension) Nicotine addiction Renal carcinoma Renal cell cancer Restless leg syndrome Rib pain on right side Tachycardia Tubular adenoma of colon (04/18/17) Surgical History Colonoscopy - MAC (04/18/17) right rib resection Social History Smoking/Tobacco Use Status: Current every day Smoking risk assessment performed?: Yes Alcohol Intake: never Drug use: Daily Substance use type: marijuana Do you feel safe at home: Yes Do you feel safe in your relationship?: Yes Exam Narrative Exam Narrative: 1.Const: Well-nourished, Well-developed, appearing stated age 2.Eyes: PERRL, no conjunctival injection, and symmetrical lids. 3.ENT: Atraumatic external nose and ears. Moist MM. Neck: Symmetric, trachea midline, No thyromegaly. 4.CVS: +S1/S2, No murmurs or gallops. Peripheral pulses 2+ and equal in all extremities. Brisk capillary refill in all extremities. 5.RESP: Unlabored respiratory effort. Clear to auscultation except for questionable minimal crackle at the apices bilaterally. No wheezes or rhonchi 6.GI: Soft, Nontender/Nondistended, No hepatosplenomegaly. No guarding or rebound. 7.MSK: Normocephalic/Atraumatic, Extremities w/o deformity or ttp No cyanosis or clubbing, Normal movement of all extremities 8.Skin: Warm, Dry. No rashes or lesions. 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 Sensation grossly intact, no focal neurologic deficits. 10.Psych: (AAO) x3. Appropriate mood and affect Course Vital Signs Vital signs: Vital Signs Temperature 36.9 C 09/09/22 14:39 Pulse 66 09/09/22 14:39 Respiratory Rate 18 09/09/22 14:39 Blood Pressure 146/85 H 09/09/22 14:39 Pulse Oximetry 99 09/09/22 14:39 Temperature 36.9 C 09/09/22 14:39 Pulse 66 09/09/22 14:39 Respiratory Rate 18 09/09/22 14:39 Respiratory Effort Short of Breath 09/09/22 15:02 Respiratory Depth Normal 09/09/22 15:02 Respiratory Pattern Normal 09/09/22 15:02 Blood Pressure 146/85 H 09/09/22 14:39 Blood Pressure Position Sitting 09/09/22 14:39 Pulse Oximetry 99 09/09/22 14:39 Oxygen Delivery Method Room Air 09/09/22 14:39 Oxygen Flow Rate 0 09/09/22 14:39
[2022-09-09] MEDS: Albuterol HFA 8 GM 60 PUFF INH IH (16:32)
[2022-09-09 16:33] VITALS: BP 145/81; PULSE 71; RESP 16; O2SAT 98
[2022-09-09] MEDS: Inhaler, Assist Device 1 EACH MC (16:33)
[2022-09-09 16:35] VITALS: BP 145/81; PULSE 73; O2SAT 99
== END 2022-09-09 16:39 | disposition home or self-care (01) ==
PROVIDERS: Emergency Provider Student in an Organized Health Care Education/Training Program; PCP Family Medicine
DX: R06.02 Shortness of breath (principal); Z20.822 Contact with and (suspected) exposure to COVID-19; J40 Bronchitis, not specified as acute or chronic
CPT/HCPCS: 93005; 94640; 99202; 99284; 71046; 93010

== ENCOUNTER 2023-09-15 00:26 | Outpatient (CLI) | payer OTHER, SELFPAY ==
--- NOTE | 2023-09-15 | DI.CTLCSR_ITS ---
Exam(s) CT CHEST LUNG CANCER SCREEN EXAM: CT CHEST LUNG CANCER SCREEN CLINICAL HISTORY: Nicotine dependence, F17.210. TECHNIQUE: Imaging Protocol: Low Dose Technique CONTRAST MATERIAL: None COMPARISON: CT ABD PELVIS WITH CONTRAST from 10/02/2015 CT ABD PELVIS WITH CONTRAST from 10/09/2015 CR XR CHEST 2V PA LATERAL from 09/09/2022 FINDINGS: CHEST: LUNGS: There are no ominous pulmonary nodules. Scarring in the lung bases again noted. No pleural ef fusions. MEDIASTINUM: There is no obvious hilar nor mediastinal adenopathy. CARDIAC: Heart size is normal. There is no pericardial effusion.Caliber of the thoracic aorta is wit hin normal limits. OTHER: Lowermost images reveal no adrenal masses but there are peripherally calcified nodules in the partially visualized right kidney which are difficult to evaluate on this type study. Recommend ultr asound. Spleen size normal. OSSEOUS: No significant osseous lesions.. IMPRESSION: 1. No significant pulmonary nodules. No new infiltrates nor pleural effusions nor new obvious intra thoracic adenopathy 2. Findings posteriorly in the partially visualized right kidney which are probably sequelae of the p rior findings described on CT scan of the abdomen performed October 2015. 3. Lung RADS Cat 1 - Negative: No nodules and definitely benign nodules Lung-RADS 1.0 CATEGORIES: Category 0 - Prior chest CT exam(s) being located for comparison. Category 1 - Annual screening in 12 months. No nodules or definitely benign nodules. Category 2 - Annual screening in 12 months. Benign appearance. Nodules with low likelihood of becomin g active cancer. Category 3 - 6-month follow-up. Probably benign. Short-term follow-up suggested. Nodules with low lik elihood of becoming active cancer. Category 4A - 3-month follow-up and CT/PET if >8 mm in size. Suspicious finding. Findings which requi re additional testing. Category 4B - Findings which require additional testing and tissue sampling. Category 4X - Category 3 or 4 nodules with additional features or imaging findings that increases the suspicion of malignancy. Modifier S- Potentially clinically significant findings (non lung cancer) RADIATION DOSE DELIVERED: Total DLP DATA REPOSITORY: All CT scans at this facility are submitted to the National Radiology Data Registry (NRDR) Dose Index Registry (DIR) with the [employer] (A[employer]). RADIATION OPTIMIZATION: All CT scans at this facility use at least one of these dose optimization te chniques: automated exposure control; mA and/or kV adjustment per patient size (includes targeted exa ms where dose is matched to clinical indication); or iterative reconstruction.
== END 2023-09-15 00:46 ==
PROVIDERS: PCP Family Medicine; Visit Provider Family Medicine
DX: F17.210 Nicotine dependence, cigarettes, uncomplicated (principal); Z12.2 Encounter for screening for malignant neoplasm of respiratory organs
CPT/HCPCS: 71271

== ENCOUNTER 2024-02-23 14:16 | Outpatient (REF) | payer MEDICARE, SELFPAY ==
[2024-02-27 08:39] LABS: Methylphenidate 345 ng/mL (Cutoff: 10); Ritalinic Acid 6257 ng/mL (Cutoff: 50)
== END 2024-02-23 14:17 | disposition home or self-care (01) ==
LOC: LBN 14:16
PROVIDERS: PCP Family Medicine; Visit Provider Nurse Practitioner Family
DX: Z51.81 Encounter for therapeutic drug level monitoring (principal); F33.41 Major depressive disorder, recurrent, in partial remission; F90.0 Attention-deficit hyperactivity disorder, predominantly inattentive type
CPT/HCPCS: 80360

== ENCOUNTER 2024-08-19 15:49 | Outpatient (REF) | payer MEDICARE, SELFPAY ==
[2024-08-19 16:24] LABS: Hemoglobin A1C 5.9 % (<5.7)
[2024-08-19 16:31] LABS: Anion Gap 6.4 mmol/L (3-11); BUN 16 mg/dL (7-18); CO2 30.6 mmol/L (21.0-32.0); Calcium 9.9 mg/dL (8.5-10.1); Calculated LDL 89 mg/dL (<100); Chloride 103 mmol/L (98-107); Cholesterol 168 mg/dL (<200); Estimated GFR 70.53 (mL/min/1.73m2); Glucose 131 mg/dL (74-106); HDL Cholesterol 54 mg/dL (>or=40); Potassium 4.4 mmol/L (3.5-5.1); Sodium 140 mmol/L (136-145); Triglyceride 126 mg/dL (<150)
[2024-08-19 18:32] LABS: Uric Acid 6.7 mg/dL (3.5-7.2)
== END 2024-08-19 15:50 | disposition home or self-care (01) ==
LOC: NCHCN 15:49
PROVIDERS: PCP Family Medicine; Visit Provider Family Medicine
DX: E78.5 Hyperlipidemia, unspecified (principal); R73.9 Hyperglycemia, unspecified; M10.9 Gout, unspecified; Z90.5 Acquired absence of kidney
CPT/HCPCS: 80048; 80061; 83036; 84550

== ENCOUNTER 2024-08-23 17:56 | Outpatient (REF) | payer MEDICARE, SELFPAY ==
[2024-08-23 18:52] LABS: Cannabinoids THC Positive (Negative); METHADONE URINE SCREEN Negative (Negative)
== END 2024-08-23 17:57 | disposition home or self-care (01) ==
LOC: LBN 17:56
PROVIDERS: PCP Family Medicine; Visit Provider Registered Nurse
DX: Z51.81 Encounter for therapeutic drug level monitoring (principal)
CPT/HCPCS: 80307

== ENCOUNTER → 2024-12-13 03:29 | Outpatient (CLI) | payer MEDICARE, SELFPAY ==
--- NOTE | 2024-12-13 | DI.CTLCSR_ITS ---
Exam(s) CT CHEST LUNG CANCER SCREEN EXAM: CT CHEST LUNG CANCER SCREEN CLINICAL HISTORY: FORMER SMOKER, Z87.891,SCREENING FOR LUNG CA TECHNIQUE: Imaging Protocol: Axial computed tomography images with coronal and sagittal reformatted images were created and reviewed. Lung Computer Aided Detection (CAD) was utilized. COMPARISON: CT CT CHEST LUNG CANCER SCREEN from 09/15/2023 FINDINGS: Tracheobronchial tree: Patent where visualized. No bronchiectasis. Pulmonary parenchyma: No consolidation or dominant measurable mass. There is scarring again seen in the left lower lobe. Lung Nodules: There are no suspicious pulmonary nodules. Mediastinum and Carmen: No dominant adenopathy or fluid collection. The esophagus is unremarkable. Thyroid gland: Unremarkable. Lymph nodes: Unremarkable. Pleura: No effusion or pneumothorax. Heart: The heart is not dilated. No coronary artery calcifications are seen. No pericardial effusion. Aorta: Thoracic aorta non-dilated.Mild atherosclerotic calcification is present. Upper abdomen: Unremarkable. Soft Tissues: Unremarkable. Bones: Within normal limits. IMPRESSION: There are no suspicious pulmonary nodules. Lung RADS Cat 1 - Negative: No nodules and definitely benign nodules Lung-RADS 1.0 CATEGORIES: Category 0 - Prior chest CT exam(s) being located for comparison. Category 1 - Annual screening in 12 months. No nodules or definitely benign nodules. Category 2 - Annual screening in 12 months. Benign appearance. Nodules with low likelihood of becoming active cancer. Category 3 - 6-month follow-up. Probably benign. Short-term follow-up suggested. Nodules with low likelihood of becoming active cancer. Category 4A - 3-month follow-up and CT/PET if >8 mm in size. Suspicious finding. Findings which require additional testing. Category 4B - Findings which require additional testing and tissue sampling. Suspicious finding. Category 4X - Category 3 or 4 nodules with additional features or imaging findings that increases the suspicion of malignancy. Modifier S- Potentially clinically significant finding. (Non lung cancer) RADIATION DOSE DELIVERED: Total DLP Total DLP DATA REPOSITORY: All CT scans at this facility are submitted to the National Radiology Data Registry (NRDR) Dose Index Registry (DIR) with the [employer] (ACR). RADIATION OPTIMIZATION: All CT scans at this facility use at least one of these dose optimization techniques: automated exposure control; mA and/or kV adjustment per patient size (includes targeted exams where dose is matched to clinical indication); or iterative reconstruction.
== END ==
PROVIDERS: PCP Family Medicine; Visit Provider Family Medicine
DX: Z87.891 Personal history of nicotine dependence (principal)
CPT/HCPCS: 71271